=== PATIENT | male | born 1960 | race Caucasian/White ===

== ENCOUNTER 2019-09-09 08:56 | Day surgery (SDC) | payer OTHER ==
[~2019-09-09 08:56] MED LIST: PROPOFOL INJ 200 MG/20 ML VIAL IV ONE
[2019-09-09] MEDS ORDERED: PROPOFOL INJ 200 MG/20 ML VIAL IV ONE (11:35)
--- NOTE | 2019-09-09 11:46 | Discharge Summary ---
Discharge Summary (SDC) - Discharge Final Diagnosis: Abdominal pain. Mild gastritis. Diverticulosis. Date of Surgery: 09/09/19 Discharge Date: 09/09/19 Condition: Stable Treatment or Instructions: Discharge home. Diet as tolerated. Activity: Nonstrenuous. Follow-up with me in 7 to 10 days. Referrals: KAMRON DE LA O PA [Primary Care Provider] - Discharge Diet: As Tolerated Respiratory Treatments at Home: Deep Breathing/Coughing, Incentive Spirometer Discharge Activity: Balance Activity w/Rest Home Care Assistance: None Needed Report the Following to Your Physician Immediately: Shortness of Breath, Nausea, Vomiting, Fever over 101 Degrees, Unusual Bleeding
--- NOTE | 2019-09-09 12:15 | Operative Report ---
Nonrecallable Operative Report DATE OF SURGERY: 09/09/19 PREOPERATIVE DIAGNOSIS: Abdominal pain POSTOPERATIVE DIAGNOSIS: 1. Mild gastritis. 2. Small sliding hiatal hernia. 3. Reflux esophagitis. 4. Diverticulosis. OPERATION: 1. EGD with biopsy. 2. Colonoscopy to the cecum. SURGEON: RACHEL TRUJILLO ANESTHESIA: LMAC TISSUE REMOVED OR ALTERED: 1. Antral biopsy. 2. Distal esophagus biopsy. COMPLICATIONS: None apparent. ESTIMATED BLOOD LOSS: Minimal. PROCEDURE: Procedure in detail: After informed consent was obtained, the patient was brought to the operating room and laid in the left lateral decubitus position. The endoscope was passed down the oropharynx, down the esophagus stomach. The stomach was insufflated with air. Immediately there is noted to be petechiae consistent with antral gastritis. The scope was pushed into the duodenum, through the pylorus. The first and second portion of the duodenum appeared normal. The scope was withdrawn back into the antrum. A biopsy was taken to rule out H. pylori. Retroflexion maneuver was performed. A small to moderate sized sliding hernia was identified. The scope was then withdrawn into the distal esophagus. In the distal esophagus were circumferential ulcerations, consistent with reflux esophagitis. Biopsy was taken in the distal esophagus, to rule out Rueda's. The scope was then withdrawn up the remainder of the esophagus. The remainder of the esophagus was smooth in contour without masses, lesions, or other abnormalities. The scope was withdrawn from the oropharynx, and this portion of the procedure was concluded. Attention was then turned to the colonoscopy. The colonoscope was inserted into the rectum. The scope was advanced up the rectum, sigmoid colon, descending colon, across the transverse colon, down the ascending colon, and into the cecum. The ileocecal valve and appendiceal orifice was identified. The scope was then withdrawn, circumferentially noting the mucosa. The prep was fair. Multiple washings and suctionings were required in order to visualize the entirety of the mucosa. This was successful. The scope was withdrawn past the ascending colon, transverse colon, descending colon, sigmoid colon, and into the rectum. In the sigmoid colon, there were scattered diverticula throughout. There is no sign of active diverticulitis or any bleeding. A retroflexion maneuver was performed in the rectum. No significant pathology was identified. The scope was then straightened, air was suctioned from the rectum, the scope was removed, the procedure was concluded. All sponge, instrument, needle counts were correct x2. Condition: Stable.
[2019-09-09 12:21] VITALS: BP 151/89
== END 2019-09-09 12:16 | disposition home or self-care (01) ==
LOC: END 08:56
PROVIDERS: ATTEND Surgery
DX: K31.9 Disease of stomach and duodenum, unspecified (principal); K21.9 Gastro-esophageal reflux disease without esophagitis; K44.9 Diaphragmatic hernia without obstruction or gangrene; Z86.010 Personal history of colon polyps; K57.30 Diverticulosis of large intestine without perforation or abscess without bleeding; Z88.8 Allergy status to other drugs, medicaments and biological substances; I10 Essential (primary) hypertension; J98.3 Compensatory emphysema; G47.30 Sleep apnea, unspecified; F17.210 Nicotine dependence, cigarettes, uncomplicated; Z79.899 Other long term (current) drug therapy; G47.33 Obstructive sleep apnea (adult) (pediatric); M32.9 Systemic lupus erythematosus, unspecified
CPT/HCPCS: 43239; 45378; 88305 ×2; 00813; J2704; 813

== ENCOUNTER → 2020-02-22 | Outpatient (CLI) | payer OTHER ==
--- NOTE | 2020-02-23 09:10 | RADIOLOGY REPORT (SQ) ---
EXAM DESCRIPTION: CT RT LOWER EXTREMITY WITHOUT IMAGES COMPLETED DATE/TIME: 02/22/2020 12:11 pm REASON FOR STUDY: M17.10 UNILATERAL PRIMARY OSTEOARTHRITIS, UNSPECIFIED KNEE COMPARISON: None. TECHNIQUE: Axial imaging performed through the Right knee with reformatted coronal and sagittal imaging windowed for bone and soft tissues. Images saved to PAC S. 3D IMAGING: Were 3D images as MIP, SSD, or volume rendering performed at the work station? Yes LIMITATIONS: Metal artifact. FINDINGS: SOFT TISSUES: No obvious swelling or foreign body. BONY STRUCTURES: Intact total knee arthroplasty. No evidence of loosening or infection. MINERALIZATION: Normal. OTHER: No other significant finding. IMPRESSION: Intact total knee arthroplasty. Reading location - IP/workstation name: [email or web address]
--- NOTE | 2020-02-23 09:17 | RADIOLOGY REPORT (SQ) ---
EXAM DESCRIPTION: MRI LT LOWER JOINT WITHOUT IMAGES COMPLETED DATE/TIME: 02/22/2020 1:19 pm REASON FOR STUDY: S83.242A OTH TEAR OF MEDIAL MENISCUS, CURRENT INJURY, LEFT KNEE, INIT S83.242A OT H TEAR OF MEDIAL MENISCUS, CURRENT INJURY, LEFT K M17.10 UNILATERAL PRIMARY OSTEOARTHRITIS, UNSPECIF IED KNEE COMPARISON: None. TECHNIQUE: Leftknee images acquired and stored on PACS. Multiplanar images include fat sensitive se quences as T1, water sensitive sequences as FST2 or STIR, cartilage sensitive sequences as FSPD, and gradient echo sequences. LIMITATIONS: Motion artifact. FINDINGS: JOINT AND BURSAE: No effusion. BONE CORTEX AND MARROW: No alteration of signal to suggest marrow replacement. No worrisome bone lesi ons. No occult fracture. ACL: Intact. No degeneration or ganglion cyst. PCL: Intact. MCL: Intact. No periligamentous edema or fluid. LCL: Intact. No periligamentous edema or fluid. MEDIAL MENISCUS: Horizontal tear posterior horn. LATERAL MENISCUS: No tears. No abnormal signal. MEDIAL COMPARTMENT: Cartilage thinning. No large osteophytes or subchondral edema. LATERAL COMPARTMENT: Cartilage preserved. No bone bruises or reactive marrow edema. No osteophytes. PATELLA: Cartilage thinning. No large osteophytes or subchondral edema. EXTENSOR MECHANISM: Intact. Quadriceps and patella tendons normal. SOFT TISSUES: Small Wilder cyst. OTHER: No other significant finding. IMPRESSION: 1. Horizontal tear posterior horn medial meniscus. 2. Chondromalacia medial and patellofemoral compartments. TECHNICAL DOCUMENTATION: JOB ID: [id number] 2010 [employer]- All Rights Reserved Reading location - IP/workstation name: [email or web address]
== END ==
LOC: RAD 11:30
PROVIDERS: ATTEND Physician Assistant
DX: S83.242A Other tear of medial meniscus, current injury, left knee, initial encounter (principal); M17.10 Unilateral primary osteoarthritis, unspecified knee; X58.XXXA Exposure to other specified factors, initial encounter

== ENCOUNTER → 2020-06-20 | Outpatient (CLI) | payer OTHER ==
--- NOTE | 2020-06-20 18:03 | RADIOLOGY REPORT (SQ) ---
EXAM DESCRIPTION: VENOUS UNILATERAL LOWER IMAGES COMPLETED DATE/TIME: 06/20/2020 5:33 pm REASON FOR STUDY: LLE PAIN M79.662 PAIN IN LEFT LOWER LEG COMPARISON: None. TECHNIQUE: Dynamic and static blair scale and color images acquired of the left leg venous system. Se lected spectral images acquired with additional compression and augmentation maneuvers. The contralat eral common femoral vein and saphenofemoral junction were also imaged. Images stored on PACS. LIMITATIONS: None. FINDINGS: COMMON FEMORAL: Normal phasicity, compression and augmentation. No visualized echogenic ma terial on blair scale. No defects on color images. FEMORAL: Normal compression and augmentation. No visualized echogenic material on blair scale. No defe cts on color images. POPLITEAL: Normal compression, augmentation. No visualized echogenic material on blair scale. No defec ts on color images. CALF VESSELS: Normal compression, augmentation. No visualized echogenic material on blair scale. No de fects on color images. GSV and SSV: Normal compression, augmentation. No visualized echogenic material on blair scale. No def ects on color images. ANY DEEP VENOUS INSUFFICIENCY: Not evaluated. ANY EVIDENCE OF POPLITEAL CYST: No. OTHER: No other significant finding. CONTRALATERAL COMMON FEMORAL VEIN AND SAPHENOFEMORAL JUNCTION: Normal phasicity, compression and augmentation. No visualized echogenic material on blair scale. No de fects on color images. IMPRESSION: NO EVIDENCE DVT OR SVT IN THE LEFT LEG. TECHNICAL DOCUMENTATION: JOB ID: [id number] 2010 [employer] All Rights Reserved Reading location - IP/workstation name: [email or web address]
== END ==
LOC: SP 15:49
PROVIDERS: ATTEND Physician Assistant
DX: M79.662 Pain in left lower leg (principal)
CPT/HCPCS: 93971